=== PATIENT | female | born 1950 ===

== ENCOUNTER 2020-07-09 03:18 | Inpatient (IN) | payer SELFPAY ==
[~2020-07-09] VITALS: Ht 152.4 cm; Wt 56.2 kg
[2020-07-09] MEDS ORDERED: MORPHINE SULFATE 4 MG/ML, 1ML IVPush PRN (03:30)
[2020-07-09] MEDS ORDERED: KETOROLAC 30 MG/1 ML IV ONE (03:30)
[2020-07-09] MEDS ORDERED: SODIUM CHLORIDE FLUSH 10ML SYR IVF ONE (03:30)
[2020-07-09] MEDS ORDERED: ONDANSETRON 2MG/ML, 2ML IVPush ONE (03:30)
[2020-07-09 04:19] LABS: BASOPHILS % (AUTO) 1 % (0-1); EOSINOPHILS % (AUTO) 1 % (1-7); LYMPHOCYTES % (AUTO) 5 % (22-44); MEAN CORPUSCULAR HEMOGLOBIN 33.1 pg (27.0-34.8); MEAN CORPUSCULAR HGB CONC 32.8 g/dL (32.4-35.8); MEAN PLATELET VOLUME 11.5 fL (7.4-10.4); MONOCYTES % (AUTO) 12 % (2-9); NEUTROPHILS % (AUTO) 82 % (42-75); PLATELET COUNT 246 x10^3/uL (130-400); RED BLOOD COUNT 2.87 x10^6/uL (3.82-5.3); RED CELL DISTRIBUTION WIDTH 17.2 % (9.6-15.2)
[2020-07-09 04:20] LABS: MD NO
[2020-07-09] MEDS ORDERED: KETOROLAC 30 MG/1 ML ONE (04:25)
[2020-07-09] MEDS ORDERED: ONDANSETRON 2MG/ML, 2ML ONE (04:25)
[2020-07-09] MEDS ORDERED: MORPHINE SULFATE 4 MG/ML, 1ML ONE ×2 (04:25→21:09)
[2020-07-09 04:26] LABS: INTERNATIONAL NORMALIZED RATIO 1.32 (0.93-1.1)
[2020-07-09 04:27] LABS: ALANINE AMINOTRANSFERASE 33 U/L (12-78); ALBUMIN 3.5 g/dL (3.4-5.0); ANION GAP 8 mmol/L (5-15); CALCIUM 8.2 mg/dL (8.5-10.1); CHLORIDE 101 mmol/L (98-107); CREATININE 0.66 mg/dL (0.55-1.02)
[2020-07-09 04:31] LABS: ALKALINE PHOSPHATASE 144 U/L (45-117); BILIRUBIN,TOTAL 3.1 mg/dL (0.2-1.0); TOTAL PROTEIN 6.7 g/dL (6.4-8.2); TROPONIN I 0.088 ng/mL (0.000-0.045)
[2020-07-09] MEDS ORDERED: POTASSIUM CHLORIDE 20 MEQ TAB.ER.PRT PO ONE (05:00)
[2020-07-09] MEDS ORDERED: ASPIRIN 81 MG TABLET CHEW PO ONE (05:00)
[2020-07-09] MEDS ORDERED: ASPIRIN 81 MG TABLET CHEW ONE (05:05)
[2020-07-09] MEDS ORDERED: POTASSIUM CHLORIDE 20 MEQ TAB.ER.PRT ONE (05:05)
--- NOTE | 2020-07-09 05:10 | NUR ---
pt here visiting from [place]. pt has fallen multiple times in the last couple days. pt has c/o back pain. pt currently resting with n current complaints. pt medicated per mar
[2020-07-09] MEDS ORDERED: morphine SULFATE 10 MG/ML, 1ML IVPush PRN (06:00)
[2020-07-09] MEDS ORDERED: ENALAPRILAT 1.25 MG/ML, 2ML IVPush PRN (06:00)
[2020-07-09] MEDS ORDERED: PROMETHAZINE 25 MG/ML, 1ML IM PRN (06:00)
[2020-07-09 06:09] LABS: MICROSCOPIC INDICATED
[2020-07-09] MEDS ORDERED: POTASSIUM CHLORIDE 40 MEQ in SODIUM CHLORIDE 0.9% 500 ML IV ONE (06:30)
--- NOTE | 2020-07-09 06:41 | NUR ---
pt sleeping in bed, pt on monitor, pt vss. rn awaiting meds from pharmacy for pt
[2020-07-09 06:54] LABS: AMPHETAMINE SCREEN, URINE Negative (Negative); BARBITURATE SCREEN, URINE Negative (Negative); BENZODIAZEPINE SCREEN, URINE Positive (Negative); CANNABINOID SCREEN, URINE Negative (Negative); COCAINE SCREEN, URINE Negative (Negative); METHADONE SCREEN, URINE Negative (Negative); OPIATE SCREEN, URINE Negative (Negative)
--- NOTE | 2020-07-09 07:00 | NUR ---
report from bob jenkins. as
[2020-07-09] MEDS ORDERED: ENOXAPARIN 60 MG/0.6 ML ONE ×2 (07:26→17:48)
[2020-07-09] MEDS: ENOXAPARIN 60 MG/0.6 ML SQ SCH ×2 (07:35→17:50)
--- NOTE | 2020-07-09 07:40 | NUR ---
pt sleeping, arouses to touch, answers questions apprpriately but falls asleep quickly sts is v tired. meds per mar. paced on monitor 80s. fall precs/call barron. as
--- NOTE | 2020-07-09 09:09 | NUR ---
resting in bed sleeping vss called for hosp bed. as
--- NOTE | 2020-07-09 09:52 | NUR ---
called dr king re: elev ammonia and pt decr mental status, no order for lactulose for now, per md let pt sleep. as
--- NOTE | 2020-07-09 10:20 | NUR ---
[facility]-[id number]
--- NOTE | 2020-07-09 10:34 | NUR ---
pt moved to hosp bed. bedpan. sts is connie through withdrawal from ativan that she was on for restless leg syndrome. as
--- NOTE | 2020-07-09 10:53 | NUR ---
bladder scanned after can't void, 800cc. straight catthed 800 cc. christine notified, order for funk obtained. as
--- NOTE | 2020-07-09 11:30 | NUR ---
dr king in room to see pt. as
[2020-07-09 11:51] LABS: TROPONIN I 0.085 ng/mL (0.000-0.045)
--- NOTE | 2020-07-09 11:55 | NUR ---
pts exhusband to come and bring med list. as
[2020-07-09] MEDS ORDERED: ATOR40TA78 PO (13:39)
[2020-07-09] MEDS ORDERED: ASPI-515 PO (13:39)
[2020-07-09] MEDS ORDERED: FURO40TA6 PO (13:39)
[2020-07-09] MEDS ORDERED: WARF3TAB52 PO (13:49)
[2020-07-09] MEDS ORDERED: AMIO100T4 PO (13:49)
[2020-07-09] MEDS ORDERED: BUDE10.26 INH (13:49)
[2020-07-09] MEDS ORDERED: UBID50TA3 PO (13:49)
[2020-07-09] MEDS ORDERED: METO50TA82 PO (13:49)
[2020-07-09] MEDS ORDERED: POTA20TA89 PO (13:49)
[2020-07-09] MEDS ORDERED: FLUT1BLS11 INH (13:49)
[2020-07-09] MEDS ORDERED: ALBU18HF INH (13:49)
--- NOTE | 2020-07-09 14:07 | NUR ---
med rec updated. called dr king to gurdeep him. as
--- NOTE | 2020-07-09 14:24 | NUR ---
GIVEN TEA, FAM AT BEDSIDE, NO NEEDS.
--- NOTE | 2020-07-09 15:08 | NUR ---
pt given food, sleeping, vss. as
--- NOTE | 2020-07-09 15:55 | NUR ---
DISCUSSED WARFARIN ORDER W PHARMACIST, NO CHANGES IN ORDERS, REQ MEDS FROM PHARM.
[2020-07-09] MEDS ORDERED: ALBUTEROL HFA 90 MCG/SPRAY INH SCH (16:00)
--- NOTE | 2020-07-09 16:51 | NUR ---
BLADDER SCANNED. 200 CC. DOES NOT NEED TO VOID YET.
[2020-07-09] MEDS: ALBUTEROL HFA 90 MCG/SPRAY INH SCH ×2 (17:21→21:13)
--- NOTE | 2020-07-09 17:22 | NUR ---
meds per mar, ok swallowing, goes straight back to sleep. as
[2020-07-09] MEDS ORDERED: WARFARIN 5 MG TABLET PO-COUM SCH (18:00)
[2020-07-09 18:10] LABS: TROPONIN I 0.069 ng/mL (0.000-0.045)
--- NOTE | 2020-07-09 19:10 | NUR ---
report to diana westfall rn. as
--- NOTE | 2020-07-09 19:10 | NUR ---
REPORT FROM RAMIREZ WHITT
--- NOTE | 2020-07-09 19:32 | NUR ---
pt in hospital bed. attempting to void in commode, unable to. educated on funk insertion, pt verbalizes understanding.
--- NOTE | 2020-07-09 20:43 | NUR ---
PT VOIDED IN BSC, 150 ML OF CLEAR/ORANGE URINE
[2020-07-09] MEDS ORDERED: ATORVASTATIN 20 MG TABLET ONE (21:09)
[2020-07-09] MEDS: morphine SULFATE 10 MG/ML, 1ML IVPush PRN (21:12)
[2020-07-09] MEDS: ATORVASTATIN 20 MG TABLET PO SCH (21:12)
--- NOTE | 2020-07-09 22:05 | NUR ---
REPORT GIVEN TO DORIS WHITT
[2020-07-09 22:45] VITALS: BP 98/60
[2020-07-09 23:45] VITALS: BP 98/60
[2020-07-10] VITALS: BP 98/60
[2020-07-10] MEDS: morphine SULFATE 10 MG/ML, 1ML IVPush PRN ×3 (00:15→21:46)
[2020-07-10 05:42] LABS: BASOPHILS % (AUTO) 1 % (0-1); EOSINOPHILS % (AUTO) 3 % (1-7); LYMPHOCYTES % (AUTO) 7 % (22-44); MEAN CORPUSCULAR HEMOGLOBIN 33.7 pg (27.0-34.8); MEAN CORPUSCULAR HGB CONC 32.7 g/dL (32.4-35.8); MEAN PLATELET VOLUME 9.1 fL (7.4-10.4); MONOCYTES % (AUTO) 12 % (2-9); NEUTROPHILS % (AUTO) 76 % (42-75); PLATELET COUNT 152 x10^3/uL (130-400); RED BLOOD COUNT 2.47 x10^6/uL (3.82-5.3); RED CELL DISTRIBUTION WIDTH 17.1 % (9.6-15.2)
[2020-07-10 05:43] LABS: INTERNATIONAL NORMALIZED RATIO 1.5 (0.93-1.1); PROTHROMBIN TIME 15.8 Seconds (9.6-11.5)
[2020-07-10 05:49] LABS: ALBUMIN 2.8 g/dL (3.4-5.0); ANION GAP 3 mmol/L (5-15); CALCIUM 7.5 mg/dL (8.5-10.1); CHLORIDE 106 mmol/L (98-107)
[2020-07-10 05:53] LABS: ALANINE AMINOTRANSFERASE 27 U/L (12-78); ALKALINE PHOSPHATASE 116 U/L (45-117); BILIRUBIN,TOTAL 1.5 mg/dL (0.2-1.0); CHOL/HDL RATIO 3.6; CHOLESTEROL, TOTAL 135 mg/dL (140-239); CREATININE 0.53 mg/dL (0.55-1.02); HDL CHOL % 28 % (28-40); HDL CHOLESTEROL (DIRECT) 38 mg/dL (40-60); LDL CHOLESTEROL,CALCULATED 80 mg/dL (54-169); LDL/HDL RATIO 2.1 (0.5-3.0); TOTAL IRON BINDING CAPACITY 225 mcg/dL (250-450); TOTAL PROTEIN 5.7 g/dL (6.4-8.2); TRIGLYCERIDES 87 mg/dL (50-200); VLDL CHOLESTEROL 17 mg/dL (0-25)
[2020-07-10 05:56] LABS: % IRON SATURATION 12 % (20-55); IRON LEVEL 28 mcg/dL (50-170)
[2020-07-10 06:00] LABS: MD NO
[2020-07-10] MEDS: ENOXAPARIN 60 MG/0.6 ML SQ SCH ×2 (06:32→18:27)
[2020-07-10] MEDS: ALBUTEROL HFA 90 MCG/SPRAY INH SCH ×4 (06:32→21:32)
[2020-07-10 07:24] VITALS: BP 117/67
[2020-07-10 07:33] VITALS: BP 122/71
[2020-07-10 07:34] VITALS: BP 114/72
[2020-07-10] MEDS: ASPIRIN 81 MG TABLET EC PO SCH (08:41)
[2020-07-10] MEDS: AMIODARONE 200 MG TABLET PO SCH (08:41)
[2020-07-10] MEDS: ACETAMINOPHEN 325 MG TABLET PO PRN (08:42)
[2020-07-10] MEDS: POTASSIUM CHLORIDE 20 MEQ TAB.ER.PRT PO SCH (08:42)
[2020-07-10] MEDS: METOPROLOL TARTRATE 50 MG TAB PO SCH (08:45)
[2020-07-10] MEDS ORDERED: FLUTICASONE/VILANTEROL 100-25MCG/INH INH SCH (09:00)
[2020-07-10] MEDS ORDERED: FUROSEMIDE 40 MG TABLET PO SCH (09:00)
[2020-07-10] MEDS ORDERED: HYDROcodone/APAP 5/325 TABLET PO PRN (11:00)
[2020-07-10] MEDS: FLUTICASONE/VILANTEROL 200-25MCG/INH INH SCH (11:22)
[2020-07-10 12:46] VITALS: BP 98/57
[2020-07-10] MEDS ORDERED: LIDODERM 5% PATCH TD SCH (14:30)
[2020-07-10] MEDS ORDERED: WARFARIN 3 MG TABLET PO-COUM ONE (18:00)
[2020-07-10] MEDS: ATORVASTATIN 20 MG TABLET PO SCH (21:32)
[2020-07-10 21:44] VITALS: BP 99/62
[2020-07-11 02:17] VITALS: BP 112/72
[2020-07-11] MEDS: ALBUTEROL HFA 90 MCG/SPRAY INH SCH (05:21)
[2020-07-11] MEDS: ACETAMINOPHEN 325 MG TABLET PO PRN (05:21)
[2020-07-11] MEDS: ENOXAPARIN 60 MG/0.6 ML SQ SCH (05:21)
[2020-07-11 06:09] LABS: INTERNATIONAL NORMALIZED RATIO 2.53 (0.93-1.1); PROTHROMBIN TIME 26.6 Seconds (9.6-11.5)
[2020-07-11 07:19] VITALS: BP 138/65
[2020-07-11] MEDS ORDERED: FUROSEMIDE 40 MG/4 ML IV SCH (09:30)
[2020-07-11] MEDS ORDERED: FUROSEMIDE 40 MG/4 ML ONE (09:50)
[2020-07-11] MEDS: AMIODARONE 200 MG TABLET PO SCH (09:54)
[2020-07-11] MEDS: METOPROLOL TARTRATE 50 MG TAB PO SCH (09:54)
[2020-07-11] MEDS: POTASSIUM CHLORIDE 20 MEQ TAB.ER.PRT PO SCH (09:54)
[2020-07-11] MEDS: ASPIRIN 81 MG TABLET EC PO SCH (09:54)
[2020-07-11] MEDS: FLUTICASONE/VILANTEROL 200-25MCG/INH INH SCH (09:57)
[2020-07-11] MEDS ORDERED: WARFARIN 1 MG TABLET PO-COUM ONE (18:00)
[2020-07-11] MEDS ORDERED: ATORVASTATIN 40 MG TABLET PO SCH (21:00)
== END 2020-07-11 13:58 | disposition left against medical advice (07) | DRG 280 ==
LOC: ED 05:04 → EDIP 05:14 → 5SO 22:22
PROVIDERS: ADMIT Family Medicine; ATTEND Hospitalist
DX: I21.A1 Myocardial infarction type 2 (principal); I50.23 Acute on chronic systolic (congestive) heart failure; G92 Toxic encephalopathy; D68.69 Other thrombophilia; E87.1 Hypo-osmolality and hyponatremia; D53.9 Nutritional anemia, unspecified; D72.829 Elevated white blood cell count, unspecified; E83.51 Hypocalcemia; E87.6 Hypokalemia; F10.10 Alcohol abuse, uncomplicated; G89.11 Acute pain due to trauma; I48.91 Unspecified atrial fibrillation; I11.0 Hypertensive heart disease with heart failure; R29.6 Repeated falls; Z79.01 Long term (current) use of anticoagulants; Z87.891 Personal history of nicotine dependence; Z91.81 History of falling; Z95.0 Presence of cardiac pacemaker; Z95.3 Presence of xenogenic heart valve; W01.0XXA Fall on same level from slipping, tripping and stumbling without subsequent striking against object, initial encounter; Y93.89 Activity, other specified; Y92.89 Other specified places as the place of occurrence of the external cause; Y99.8 Other external cause status; G25.81 Restless legs syndrome; Z53.29 Procedure and treatment not carried out because of patient's decision for other reasons
CPT/HCPCS: 36415; 70450; 71045; 72110; 73523; 76705; 80053; 80061; 80074; 80307; 80320; 81001; 82140; 82330; 82607; 83540; 83550; 83735; 83880; 84443; 84484; 85025; 85610; 85730; 87086; 93005; 93306; 93880; G0378; J1650; J1885; J1940; J2405; J3480; G0480; J2270; J7040

== ENCOUNTER 2020-07-11 23:56 | Emergency (ER) | payer OTHER ==
[~2020-07-11] VITALS: Ht 152.4 cm; Wt 55.7 kg
[~2020-07-11 23:56] MED LIST: ALBU18HF INH; AMIO100T4 PO; ASPI-515 PO; ATOR40TA78 PO; BUDE10.26 INH; FLUT1BLS11 INH; FURO40TA6 PO; METO50TA82 PO; POTA20TA89 PO; UBID50TA3 PO; WARF3TAB52 PO
--- NOTE | 2020-07-12 00:25 | NUR ---
LATE ENTRY D/T PT CARE: pt ama'd from here earlier today, pt has chf exacerbation, nstemi, and pain from a glf a few days prior. pt here from [place], states she left her coumadin there, hasnt had it prior to . pt came in today for severe 10/10 pain, states it is hips down, pt has cardiac pacemaker, mitral and aortic valve replacements. pt refuses 12 LEAD ekg stating "i cant hold still im in pain" "do something for my pain, get me a doctor now" PT PLACED ON SPO2/BP/ECG 5 LEAD MONITORING. WCTM.
[2020-07-12] MEDS ORDERED: HYDROcodone/APAP 5/325 TABLET PO ONE (00:30)
[2020-07-12] MEDS ORDERED: HYDROcodone/APAP 5/325 TABLET ONE (00:36)
--- NOTE | 2020-07-12 01:23 | NUR ---
RN TO BS WITH DC INSTRUCTIONS, PT MEDICATED PER MAR FOR PAIN PRIOR, 5 RIGHTS REVIEWED. PT YELLING AT RN, "WHAT DID YOU GUYS EVEN DO FOR ME, ARE YOU GOING TO JUST THROW ME OUT IN THE STREE?" WHEN MEDICATIONS REVIEW PT STATES "THERES NOTHING FOR MY PAIN AND TO HELP ME SLEEP HERE" RN INFORMED PT THE ERP DID NOT PROVIDE NARCOTICS. PT REFUSING TO ACKNOWLEGE DC PAPERWORK STATING "IM GOING TO [facility],YOU ALL TREAT PEOPLE TERRIBLY." RN ASKED IF THERE WAS A WAY WE COULD IMPROVE HER CARE "PT STATES SEND ME HOME WITH MEDICATION LIKE CODEINE AND TYLENOL TO ACTUALLY TREAT MY PAIN, I HAVE A HEART CONDITION." RN EXPLAINED THAT IT WAS NOT AN OPTION. PT STATES "IF I LEAVE AND FALL ITS ALL YOUR FAULT."
--- NOTE | 2020-07-12 01:40 | NUR ---
PT PROVIDED TAXI VOUCHER. UPON WHEELING OUT TO LOBBY PT STATING "IM GOING TO [facility] AND ALL OF YOU FOR THIS CARE, SENDING ME OUT." PT NAD, DENIES ADDITIONAL QUESTIONS, NO PERSONAL BELONGINGS LEFT IN ROOM UPON DC.
[2020-07-12 01:41] VITALS: BP 159/92
== END 2020-07-12 01:45 | disposition home or self-care (01) ==
LOC: ED 07-12 01:19
DX: G89.11 Acute pain due to trauma (principal); M25.552 Pain in left hip; M25.551 Pain in right hip; F10.10 Alcohol abuse, uncomplicated; I11.0 Hypertensive heart disease with heart failure; I50.9 Heart failure, unspecified; I25.2 Old myocardial infarction; E87.6 Hypokalemia; Z76.0 Encounter for issue of repeat prescription; Z72.9 Problem related to lifestyle, unspecified; Y90.0 Blood alcohol level of less than 20 mg/100 ml
CPT/HCPCS: 93005; 99283